=== PATIENT | male | born 1960 | race Caucasian/White ===

== ENCOUNTER 2020-04-16 20:09 | Emergency (ER) | payer OTHER, SELFPAY ==
[2020-04-16 20:11] VITALS: BP 178/102; PULSE 82; RESP 16; TEMP 36.8; O2SAT 98; BMI 25.1
--- NOTE | 2020-04-16 21:17 | XR_ITS ---
EXAMINATION: XR HAND, LEFT CLINICAL INFORMATION: Puncture wound, thenar eminence COMPARISON: None TECHNIQUE: PA, lateral, and oblique views of the left hand. FINDINGS: The bones and soft tissues are normal. No fracture. Alignment is anatomic. Joint spaces are maintained. No erosions or soft tissue calcifications. XR/XR hand LT 2V IMPRESSION: No acute osseous abnormalities. No radiopaque foreign body.
--- NOTE | 2020-04-16 21:26 | ED.WOUNDLAC ---
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 It is unknown when he received last tetanus vaccine, he has full range of motion, with able to clean the wound out, and the bleeding is controlled. He does not describe any other symptoms at this time. Related Data Previous Rx's Medication Instructions Recorded amoxicillin-pot clavulanate 1 tab PO Q12H 5 Days #10 tab 04/16/20 [Augmentin] Allergies Allergy/AdvReac Type Severity Reaction Status Date / Time No Known Allergies Allergy Verified 04/16/20 21:17 Review of Systems Review of Systems: Constitutional: No Fever, No Chills ENT/Mouth: No Ear Pain, No Hoarseness, No sore throat Eyes: No Eye Pain, No Swelling, No Redness, No Foreign Body Cardiovascular: No Chest Pain, No SOB Respiratory: No Cough, No Dyspnea Gastrointestinal: No Nausea, No Vomiting, No Diarrhea, No abdominal Pain Genitourinary: No Dysuria, No Hematuria Musculoskeletal: No joint pain, No Myalgias, No Joint Swelling Skin: puncture wound to the left hand, No Skin lacerations, No rash Neuro: No Weakness, No Numbness, No Paresthesias, No Loss of Consciousness, No Dizziness, No Headache Psych: No Anxiety/Panic, No Depression Heme/Lymph: no easy bruising, no Lymphadenopathy Endocrine: No Polyuria, No Polydipsia Yes all other systems are reviewed and are negative ON LICENSE OF [facility] Social History Social History Alcohol intake: never Smoked in Last 30 Days: No Advance Directives: No Advance Directives Information Provided: No Physical Exam Vital Signs: Vital Signs: Last Vital Signs Temp 98.3 F 04/16/20 20:11 Pulse 82 04/16/20 20:11 Resp 16 04/16/20 20:11 BP 178/102 H 04/16/20 20:11 Pulse Ox 98 04/16/20 20:11 Body Mass Index 25.1 Appearance: Alert. Oriented X3. No acute distress. Eyes: Pupils equal, round and reactive to light. ENT: Pharynx normal. Neck: Normal inspection. Neck supple. CVS: Normal heart rate and rhythm. Pulses normal. Respiratory: No respiratory distress. Breath sounds normal. Abdomen: Soft and nontender. Skin: 1 cm puncture wound to the left thenar process, otherwise all Skin warm and dry. Normal skin color. Normal skin turgor. Extremities: No lower extremity edema. Neuro: No motor deficit. No sensory deficit. Course Course Course Narrative: 59-year-old male presents with puncture wound to left thenar process. We will clean with iodine, order x-ray to rule out bone involvement and foreign body, update Tdap, give oral antibiotics as this tool was dirty, and suture. Patient does have full range of motion to all digits, strength 5/5 to all digits, brisk capillary refill. Prepped and draped in sterile fashion, please refer to Wound note and procedures, patient tolerated procedure well. Brisk capillary refill, neurovascularly intact status post laceration repair. X-rays negative for acute findings, bone involvement of foreign body. Patient verbalized understanding of and agrees to plan of care discharge home. Procedures Laceration Laceration 1: Site: hand Side (If applicable): left Size (cm): 1 Description: linear Depth: involves muscle layer Local Anesthetic: lidocaine 2% Amount of anesthesia used (mL): 5 Pre-repair: wound explored, irrigated extensively and deep structures intact Skin layer closed with: nylon Size (cm): 5-0 Number of sutures: 4 Technique: simple, interrupted MDM - Wound/Laceration Differential Diagnosis Differential diagnosis: Likely laceration Discharge Plan Discharge Clinical Impression: Laceration Patient Disposition: Home, Self-Care Instructions: Laceration (ED) Additional Instructions: you evaluated for laceration to the left hand. Please keep the area covered and monitor for signs and symptoms of infection. Please take Augmentin for next 5 days. This medication is to prevent infection. The mechanism of injury was from a dirty tool. Please return in 7-10 days to have sutures removed. You may return to the emergency department or to your primary care physician. Thank you for choosing this emergency department for evaluation. Please follow-up with primary care physician as needed. Return to the emergency department for any new, concerning, or worsening symptoms. Prescriptions: New amoxicillin-pot clavulanate [Augmentin] 875-125 mg tablet 1 tab PO Q12H 5 Days Qty: 10 RF: 0 Interventions: ED Discharge Assessment Last Done: 04/16/20 22:12 Discharge Date/Time: 04/16/20 22:14
[2020-04-16] MEDS: Lidocaine HCl 2 % MPF 5 ML VIAL SUBCUT (22:01)
[2020-04-16] MEDS: Amoxicillin/Potassium Clav 875 MG TABLET PO (22:03)
== END 2020-04-16 22:14 | disposition home or self-care (01) ==
PROVIDERS: Emergency Provider Emergency Medicine; PCP Internal Medicine
DX: S61.412A Laceration without foreign body of left hand, initial encounter (principal); S60.512A Abrasion of left hand, initial encounter; M79.642 Pain in left hand; Y28.9XXA Contact with unspecified sharp object, undetermined intent, initial encounter; Y93.9 Activity, unspecified; Y92.009 Unspecified place in unspecified non-institutional (private) residence as the place of occurrence of the external cause; Y99.9 Unspecified external cause status; Z23 Encounter for immunization
CPT/HCPCS: 12001; 73120; 90471; 90715; 99284

== ENCOUNTER 2020-05-10 15:02 | Outpatient (REF) | payer OTHER, SELFPAY ==
[2020-05-10 16:34] LABS: Hematocrit 42.9 % (42-52); Hemoglobin 13.8 g/dl (14.0-18.0); Mean Corpuscular HGB Conc 32.2 g/dl (31.0-36.0); Mean Corpuscular Hemoglobin 29.2 pg (27.0-33.0); Mean Corpuscular Volume 90.7 fL (80-98); Mean Platelet Volume 10.4 fL (9.4-12.4); Platelet Count 348 X10*3/uL (160-400); Red Blood Count 4.73 X10*6/uL (4.60-5.80); Red Cell Distribution Width 13.6 % (11.0-16.0); White Blood Count 7.3 X10*3/uL (4.8-10.8)
[2020-05-10 16:57] LABS: Alanine Aminotransferase 20 U/L (0-40); Albumin Level 4.3 g/dL (3.5-5.0); Alkaline Phosphatase 62 U/L (39-117); Anion Gap 10 (12-20); Aspartate Amino Transferase 19 U/L (5-37); Bilirubin Total 0.5 mg/dL (0.0-1.0); Blood Urea Nitrogen 19 mg/dL (9-16); Calcium 8.8 mg/dL (8.4-10.2); Carbon Dioxide 32 mmol/L (22-29); Chloride 104 mmol/L (96-108); Cholesterol 223 mg/dL; Estimated Glomerular Filt Rate > 60; Glucose Fasting 101 mg/dL (60-99); HDL Cholesterol 65 mg/dL; LDL Cholesterol Calculated 146 mg/dl; Sodium 142 mmol/L (135-145); Total Protein 7.1 g/dL (6.5-8.0); Triglycerides 60 mg/dL
[2020-05-10 17:17] LABS: Prostate Specific Antigen Scr 1.96 ng/mL (<0.05-4.0); TSH reflex Free T4 0.66 mIU/mL (0.32-4.0)
== END 2020-05-10 15:03 | disposition home or self-care (01) ==
LOC: HO.HMGCLDS 15:02
PROVIDERS: PCP Internal Medicine; Visit Provider Internal Medicine
DX: I10 Essential (primary) hypertension (principal); R79.89 Other specified abnormal findings of blood chemistry; E78.2 Mixed hyperlipidemia
CPT/HCPCS: 36415; 80053; 80061; 84153; 84443; 85027

== ENCOUNTER 2022-12-03 15:06 | Outpatient (REF) | payer OTHER, SELFPAY ==
--- NOTE | ~2022-12-03 | XR_ITS ---
EXAMINATION: XR HAND, RIGHT CLINICAL INFORMATION: Right hand contusion. COMPARISON: None available. TECHNIQUE: PA, lateral, and oblique views of the right hand. FINDINGS: The bones and soft tissues are normal. No fracture. Alignment is anatomic. Joint spaces are maintained. No erosions or soft tissue calcifications. XR/XR hand RT min 3V IMPRESSION: Unremarkable right hand.
[2022-12-03 15:23] LABS: MANUAL DIFF FLAG NO
[2022-12-03 15:42] LABS: Basophils Percent Auto 0.2 % (0-2); Eosinophils Absolute Auto 0.1 X10*3/uL (0.0-0.4); Eosinophils Percent Auto 0.8 % (0-4); Hematocrit 35.7 % (42.0-52.0); Hemoglobin 11.6 g/dl (14.0-18.0); Imm Gran Abs Auto 0.05 X10*3/uL (0.00-0.03); Imm Gran Pct Auto 0.6 % (0.0-0.4); Lymphocytes Absolute Auto 2.3 X10*3/uL (1.2-4.9); Mean Corpuscular HGB Conc 32.5 g/dl (31.0-36.0); Mean Corpuscular Hemoglobin 30.5 pg (27.0-33.0); Mean Corpuscular Volume 93.9 fL (80.0-98.0); Mean Platelet Volume 9.6 fL (9.4-12.4); Monocytes Absolute Auto 0.6 X10*3/uL (0.1-1.2); Monocytes Percent Auto 7.1 % (2-11); Neutrophils Absolute Auto 5.8 x10*3/uL (2.0-8.3); Neutrophils Percent Auto 65.3 % (45-73); Platelet Count 364 X10*3/uL (160-400); Red Cell Distribution Width 13.9 % (11.0-16.0); White Blood Count 8.9 X10*3/uL (4.8-10.8)
[2022-12-03 16:48] LABS: Alanine Aminotransferase 17 U/L (0-40); Albumin Level 4.2 g/dL (3.5-5.0); Alkaline Phosphatase 54 U/L (39-117); Anion Gap 14 (12-20); Aspartate Amino Transferase 21 U/L (5-37); Bilirubin Total 0.6 mg/dL (0.0-1.0); Blood Urea Nitrogen 43 mg/dL (9-16); Calcium 8.8 mg/dL (8.4-10.2); Carbon Dioxide 26 mmol/L (22-29); Chloride 102 mmol/L (96-108); Cholesterol 187 mg/dL; Estimated Glomerular Filt Rate 41; Glucose Random 94 mg/dL (60-115); HDL Cholesterol 71 mg/dL; LDL Cholesterol Calculated 91 mg/dl; Potassium 4.3 mmol/L (3.3-5.1); Sodium 138 mmol/L (135-145); Total Protein 7.4 g/dL (6.5-8.0); Triglycerides 128 mg/dL
[2022-12-03 17:14] LABS: Prostate Specific Antigen 1.34 ng/mL (<0.05-4.0)
[2022-12-03 17:18] LABS: Appearance Urine Clear; Color Urine Yellow; Glucose Urine UA Negative (Negative); Leukocyte Esterase Urine Negative (Negative); Nitrite Urine Negative (Negative); Specific Gravity - Urine <= 1.005 (1.005-1.025); Urine Blood Negative (Negative); Urine Ketones Negative (Negative); Urine Protein Negative (Neg-Trace)
[2022-12-03 20:10] LABS: Creatinine Urine 20.81 mg/dL; Microalbum/Creatinine Ratio Ur 33.6 ug/mg cr
== END 2022-12-03 15:07 | disposition home or self-care (01) ==
LOC: HO.LAB 15:06
PROVIDERS: Absent Provider Internal Medicine; PCP Internal Medicine; Visit Provider Internal Medicine
DX: Z00.00 Encounter for general adult medical examination without abnormal findings (principal); Z12.5 Encounter for screening for malignant neoplasm of prostate; S60.221A Contusion of right hand, initial encounter; R39.15 Urgency of urination; I10 Essential (primary) hypertension
CPT/HCPCS: 36415; 73130; 80053; 80061; 81003; 82043; 84153; 85025

== ENCOUNTER 2022-12-03 15:49 | Outpatient (AMB) | payer OTHER, SELFPAY ==
[2022-12-03 16:35] VITALS: BP 138/80; PULSE 69; O2SAT 100
--- NOTE | 2022-12-03 16:35 | AM.OFFWIN_ITS ---
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 Patient would like to have his right hand examined. 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 He has notices swelling at the base of the thumb with bruising. [facility] Social History Alcohol intake: never Physical Exam Vital Signs: Last Vital Signs Pulse 69 12/03/22 16:35 BP 138/80 12/03/22 16:35 Pulse Ox 100 12/03/22 16:35 Oxygen Delivery Method Room Air 12/03/22 16:35 Extrem Other: Right hand: Wrist: Full range of motion with no tenderness. Right thumb: Bruising over the thumb and tenderness in the snuffbox. Assessment & Plan Assessment & Plan (1) Contusion, hand: Code(s): S60.229A - Contusion of unspecified hand, initial encounter Plan: X-rays were personally reviewed by me. No evidence of fracture. Splint provided. Anti-inflammatories called in. If symptoms not better to follow-up here. Orders: Orders XR hand RT min 3V 12/03/22 S60.229A - Contusion of unspecified hand, initial encounter Coding Level of Care Code New Pt Level 3 (28169) Diagnoses Contusion, hand S60.229A
== END 2022-12-03 17:07 | disposition home or self-care (01) ==
PROVIDERS: PCP Internal Medicine; Visit Provider Internal Medicine
DX: S60.229A Contusion of unspecified hand, initial encounter (principal)
CPT/HCPCS: 99203

== ENCOUNTER 2024-08-05 09:20 | Outpatient (REF) | payer OTHER, SELFPAY ==
--- NOTE | ~2024-08-05 | XR_ITS ---
CLINICAL HISTORY: M25.511 - Pain in right shoulder 3 view right shoulder Comparison: None Findings: Bones intact. No dislocations. No significant loss of joint space or osteophytes. No erosions. No radiopaque foreign body. IMPRESSION: 1. No acute findings This document has been electronically signed by: Cas Levine MD on 08/06/2024 09:01:36
== END 2024-08-05 09:21 | disposition home or self-care (01) ==
LOC: HO.HOSX 09:20
PROVIDERS: Visit Provider Physician Assistant
DX: M25.511 Pain in right shoulder (principal)
CPT/HCPCS: 73030

== ENCOUNTER 2024-08-05 14:01 | Outpatient (AMB) | payer OTHER, SELFPAY ==
--- NOTE | 2024-08-05 14:02 | MHC.OFFVIS ---
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 Patient reports a slip and fall on ice about 1.5 months ago, he fell landing on his right elbow. He felt a pop/pull and had instant severe pain however this subsided moments later. Currently he feels that he has lost strength in his arm. Limited ROM. His pain radiates from his neck down to his shoulder and elbow. His neck feels stiff. No numbness or tingling. He had shoulder pain prior to his fall. He was seen by Dr. Whiteside, his PCP and was given an injection to his right shoulder about 5+ years ago. He also mentions another fall that caused him to jam his thumb, and has current [facility] pain that radiates up his arm to his elbow. 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 He heard a pop in the shoulder followed by a sensation of a tear. The pain has persisted for several months, despite icing being attempted initially. The pain worsens when reaching, lifting objects, and placing items on high shelves, with radiation into the forearm on occasion. He denies any elbow pain. The shoulder pain continues to persist and interfere with daily activities. 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 [facility], [facility] Surgical History (Updated 08/05/24 @ 14:22 by OLIVER Aguilar) Hx of knee surgery Social History (Updated 08/05/24 @ 14:23 by OLIVER Aguilar) Alcohol intake: never Patient Tobacco Use Status: Former Tobacco user e-Cigarette/Vaping Use: Currently Using Current occupational status: retired Current occupation: right hand dominant Review of Systems Const All systems reviewed & are unremarkable except as noted in HPI and below Physical Exam Vital Signs: BMI result Body Mass Index 25.8 Const General: cooperative and no acute distress Orientation/consciousness: patient oriented x3 Resp Effort & Inspection: normal respiratory effort and able to speak in complete sentences Cardio Peripheral pulses: Peripheral pulses 2+ throughout Neuro General: patient oriented x3 Results Reviewed Results Reviewed: X-rays of the right shoulder obtained in the office today and reviewed by me are negative for any acute or chronic abnormalities. Assessment & Plan Assessment & Plan (1) Injury of right rotator cuff: Code(s): S46.001A - Unspecified injury of muscle(s) and tendon(s) of the rotator cuff of right shoulder, initial encounter Category: Medical Plan: Considering the presentation and history of the right shoulder pain following a fall, further diagnostic evaluation with an MRI is recommended to assess for rotator cuff pathology. I discussed with the patient conservative versus surgical intervention which would be based off the results of the MRI. I explained the importance of physical therapy to work on range of motion rotator cuff and periscapular stabilization which he is interested in proceeding with if there is no need for surgical intervention. We will discuss once the results have been obtained. Orders: Orders XR shoulder RT min 2V Today M25.511 - Pain in right shoulder MR shoulder RT wo con Today M77.8 - Other enthesopathies, not elsewhere classified Coding Level of Care Code New Pt Level 3 (34524) Complex EM visit Add On G2211 Diagnoses Injury of right rotator cuff S46.001A
[2024-08-05 14:26] VITALS: BMI 25.8
== END 2024-08-05 14:52 | disposition home or self-care (01) ==
LOC: HO.HOS 14:01
PROVIDERS: PCP Internal Medicine; Visit Provider Physician Assistant
DX: S46.001A Unspecified injury of muscle(s) and tendon(s) of the rotator cuff of right shoulder, initial encounter (principal)
CPT/HCPCS: 99203

== ENCOUNTER → 2024-08-05 14:04 | Outpatient (BNV) | payer OTHER, SELFPAY | PROVIDERS: Visit Provider Specialist | DX: M25.511 Pain in right shoulder (principal) | CPT/HCPCS: 73030 ==